=== PATIENT | male | born 1970 | race Caucasian/White ===

== ENCOUNTER 2017-09-20 21:53 | Emergency (ER) | payer SELFPAY ==
[~2017-09-20] VITALS: Ht 180.3 cm; Wt 81.6 kg
[2017-09-20 22:14] VITALS: BP 169/88
[2017-09-20 23:35] LABS: Urine WBC None Seen /hpf (0 - 3)
[2017-09-20 23:43] LABS: Urine Bacteria NONE SEEN /hpf (None Seen); Urine Blood Negative /uL (Negative)
[2017-09-21] MEDS ORDERED: BACLOFEN 10 MG TAB PO ONE (00:45)
[2017-09-21] MEDS ORDERED: IBUPROFEN 600 MG TAB PO ONE ×2 (00:45→01:08)
[2017-09-21] MEDS ORDERED: BACLOFEN 10 MG TAB ONE (01:08)
== END 2017-09-21 04:52 | disposition home or self-care (01) ==
LOC: EDBD 21:53 → ER 22:01
DX: S16.1XXA Strain of muscle, fascia and tendon at neck level, initial encounter (principal); S00.83XA Contusion of other part of head, initial encounter; S20.211A Contusion of right front wall of thorax, initial encounter; R51 Headache; V49.49XA Driver injured in collision with other motor vehicles in traffic accident, initial encounter; Y93.89 Activity, other specified; Y99.8 Other external cause status; Y92.410 Unspecified street and highway as the place of occurrence of the external cause
CPT/HCPCS: 70450; 70486; 71250; 72125; 74176; 81001; 82962